=== PATIENT | male | born 1945 | race Caucasian/White ===

== ENCOUNTER 2018-03-14 11:52 | Inpatient (IN) | payer MEDICARE ==
[2018-03-14] VITALS (21 sets, daily range): BP systolic 98–161; BP diastolic 61–99
[~2018-03-14] VITALS: Ht 175.3 cm; Wt 92.9 kg
[~2018-03-14 11:52] MED LIST: MELO-108 PO
[2018-03-14] MEDS ORDERED: DILTIAZEM HCL 5 MG/ML 5 ML VIAL IVP ONE (12:45)
[2018-03-14] MEDS ORDERED: SODIUM CHLORIDE 0.9% 100 ML IV ONE (12:53)
[2018-03-14 12:54] LABS: BASOPHILS % (AUTO) 0.6 % (0.0-5.0); EOSINOPHILS % (AUTO) 0.8 % (0.0-8.0); HEMATOCRIT 45.1 % (42-54); LYMPHOCYTES % (AUTO) 12.4 % (21.0-51.0); MEAN CORPUSCULAR HEMOGLOBIN 30.4 pg (27.0-33.0); MEAN CORPUSCULAR HGB CONC 31.9 g/dL (32.0-36.0); MEAN CORPUSCULAR VOLUME 95.5 fL (79-99); MONOCYTES % (AUTO) 8.8 % (3.0-13.0); NEUTROPHILS % (AUTO) 77.4 % (40.0-77.0); NUCLEATED RED BLOOD CELLS 0.1 % (0.0-0.19); PLATELET COUNT (AUTO) 174 K/uL (130-400); RED BLOOD CELL COUNT(AUTO) 4.72 MIL/uL (4.50-6.20); RED CELL DISTRIBUTION WIDTH 14.5 % (11.0-15.5); WHITE BLOOD COUNT (AUTO) 11.1 K/uL (4.8-10.8)
[2018-03-14] MEDS ORDERED: DILTIAZEM HCL 5 MG/ML 10 ML VIAL IV ONE ×3 (12:54→15:10)
[2018-03-14 13:08] LABS: CARBON DIOXIDE 32 mmol/L (21-32); CHLORIDE 104 mmol/L (101-111); CREATININE 1.1 mg/dL (0.5-1.5); GLOMERULAR FILTR. RATE CALC 70 mL/min (>60); GLUCOSE,RANDOM 139 mg/dL (70-105); SODIUM SERUM 142 mmol/L (136-145); UREA NITROGEN, BLOOD 16 mg/dL (7-18)
[2018-03-14 13:09] LABS: INR 1.1 (0.85-1.15); PROTHROMBIN TIME 11.5 SEC (9.6-11.6)
[2018-03-14] MEDS ORDERED: SODIUM CHLORIDE 0.9% 500ML 500 ML IV ONE (13:15)
[2018-03-14 13:18] LABS: ALANINE AMINOTRANSFERASE 38 U/L (12-78); ALBUMIN 2.7 g/dL (3.5-5.0); ASPARTATE AMINOTRANSFERASE 22 U/L (10-37); BILIRUBIN,TOTAL 0.3 mg/dL (0.2-1.0); CREATINE KINASE, TOTAL 78 U/L (21-232); MYOGLOBIN 55 ng/mL (10-92); TOTAL PROTEIN, SERUM 6.7 g/dL (6.0-8.3); TROPONIN I < 0.04 ng/mL (0.00-0.06)
[2018-03-14] MEDS ORDERED: AZITHROMYCIN 500MG+NS 250ML 250 ML IV ONE (14:27)
[2018-03-14] MEDS ORDERED: FUROSEMIDE 10 MG/ML 4ML VIAL ONE (14:27)
[2018-03-14] MEDS ORDERED: CEFTRIAXONE SODIUM 1 GM ONE (14:27)
[2018-03-14] MEDS ORDERED: SODIUM CHLORIDE 0.9% 50 ML IV ONE (14:27)
[2018-03-14 14:42] LABS: ABG BASE EXCESS 1.4 mmol/L (-2.0-3.0); ABG HCO3 27.4 mmol/L (21.0-28.0); ABG OXYGEN SATURATION 91.7 % (95.0-99.0); ABG PCO2 49 mmHg (35-48)
[2018-03-14 16:01] LABS: APPEARANCE,URINE Clear (CLEAR); BILIRUBIN,URINE Negative (NEGATIVE); COLOR,URINE Yellow (YELLOW); GLUCOSE, URINE (UA) Negative (NEGATIVE); KETONES,URINE Negative (NEGATIVE); LEUKOCYTE ESTERASE ,URINE Negative (NEGATIVE); NITRATE,URINE Negative (NEGATIVE); OCCULT BLOOD,URINE Negative (NEGATIVE); PROTEIN,URINE Negative (NEGATIVE); UROBILINOGEN,URINE 0.2 mg/dL (0.2-1.0)
[2018-03-14] MEDS ORDERED: ONDANSETRON HCL 4 MG/2 ML VIAL IV PRN (16:15)
[2018-03-14] MEDS ORDERED: AZITHROMYCIN 500MG+NS 250ML 250 ML IV SCH (16:15)
[2018-03-14] MEDS ORDERED: ACETAMINOPHEN 325 MG TAB PO PRN (16:15)
[2018-03-14] MEDS ORDERED: DILTIAZEM HCL 125 MG/25 ML 125 MG in SODIUM CHLORIDE 0.9% 100 ML IV SCH (16:15)
[2018-03-14 17:02] LABS: HEMOGLOBIN A1C 6.1 % (4.0-6.0)
[2018-03-14 17:20] LABS: CREATINE KINASE, TOTAL 82 U/L (21-232); MYOGLOBIN 48 ng/mL (10-92); PHOSPHORUS 3.9 mg/dL (2.5-4.9); TROPONIN I < 0.04 ng/mL (0.00-0.06)
[2018-03-14] MEDS ORDERED: ASPIRIN 325 MG TABLET ONE (17:44)
[2018-03-14] MEDS ORDERED: SODIUM CHLORIDE 3% FOR INHALATION 4 ML/AMP VIAL.NEB IH ONE (18:13)
[2018-03-14] MEDS ORDERED: PNEUMOCOCCAL VACCINE POLYVALENT 0.5 ML/VIAL [PPV] IM ONE (19:00)
--- NOTE | 2018-03-14 19:25 | NUR ---
HAND OFF REPORT GIVEN TO TRISHA HENSON
--- NOTE | 2018-03-14 19:35 | NUR ---
ASSMT NOTE PT RECEIVED AAOX3. VS WNL; REMAINS AFIB 160'S, CARDIZEM INFUSING AT 15MG/HR. [facility] NOTIFIED OF CONSULT; NO NEW ORDERS GIVEN. PT DENIES PAIN OR DISTRESS.
[2018-03-14] MEDS: SODIUM CHLORIDE 0.9% 1000ML 1,000 ML IV SCH (19:41)
[2018-03-14] MEDS: ENOXAPARIN SODIUM 100 MG/1 ML SQ SCH (20:43)
[2018-03-14] MEDS: CEFTRIAXONE SODIUM 1 GM IV SCH (20:44)
[2018-03-14] MEDS: METOPROLOL TARTRATE 25 MG TAB PO SCH (20:45)
[2018-03-15] VITALS (42 sets, daily range): BP systolic 105–163; BP diastolic 42–108
[2018-03-15 00:59] LABS: CREATINE KINASE, TOTAL 57 U/L (21-232); MYOGLOBIN 65 ng/mL (10-92); TROPONIN I < 0.04 ng/mL (0.00-0.06)
[2018-03-15] MEDS: SODIUM CHLORIDE 0.9% 1000ML 1,000 ML IV SCH ×2 (04:49→08:08)
[2018-03-15] MEDS: METOPROLOL TARTRATE 25 MG TAB PO SCH ×3 (05:18→18:22)
[2018-03-15] MEDS: PANTOPRAZOLE SODIUM 40 MG TABLET.DR PO SCH (08:08)
[2018-03-15] MEDS: CEFTRIAXONE SODIUM 1 GM IV SCH (08:08)
[2018-03-15] MEDS: ENOXAPARIN SODIUM 100 MG/1 ML SQ SCH ×2 (08:09→20:33)
[2018-03-15 08:41] LABS: CREATINE KINASE, TOTAL 60 U/L (21-232); MYOGLOBIN 82 ng/mL (10-92); TROPONIN I < 0.04 ng/mL (0.00-0.06)
[2018-03-15] MEDS ORDERED: ENOXAPARIN SODIUM 40 MG/0.4 ML SYRINGE SQ SCH (09:00)
[2018-03-15] MEDS ORDERED: AMIODARONE HCL 900 MG in DEXTROSE 5%-WATER 500 ML IV SCH (11:15)
[2018-03-15] MEDS ORDERED: AMIODARONE HCL 150 MG in DEXTROSE 5%-WATER 100 ML IV SCH (12:08)
[2018-03-15] MEDS: IPRATROPIUM 0.5 MG/2.5 ML INH IH SCH ×3 (14:02→23:15)
[2018-03-15] MEDS: VERAPAMIL HCL 80 MG TABLET PO SCH ×2 (14:13→18:22)
[2018-03-15] MEDS ORDERED: MAGNESIUM 2GM PREMIX 50ML 50 ML IV SCH (15:45)
[2018-03-15] MEDS: CEFEPIME HCL 2 GM VIAL IVP SCH (16:42)
[2018-03-15] MEDS: NICOTINE 21 MG/ 24 HR PATCH TD SCH (18:18)
--- NOTE | 2018-03-15 20:00 | NUR ---
PM assessment. 1919 Bedside report received from NATIVIDAD Dean. plan of care discussed with patient and patient's family member. as per report patient heart rate in the 130-140's afib and o2 saturation 87-91% and MDs aware. Upon assessment at 1999 patient tachypneic in the 20's having some abdominal breathing. lung sounded congested and patient with current bilateral lower extremity pitting edem2+. Dr. Grant was notified, orders where received, read-back, entered into system, and carried out accordingly .will continue to monitor patient closely
[2018-03-15] MEDS: BUDESONIDE 0.5 MG/2 ML INH IH SCH (20:07)
[2018-03-15] MEDS: METHYLPREDNISOLONE SOD SUCC 40MG/ML 1ML IVP SCH (20:32)
[2018-03-15] MEDS: DOXYCYCLINE HYCLATE 100 MG TABLET PO SCH (20:32)
[2018-03-15] MEDS: FUROSEMIDE 10 MG/ML 4ML VIAL IV SCH (20:32)
--- NOTE | 2018-03-15 22:45 | NUR ---
CT scan. After Orders were carried out patient voided 1350, gave respiratory treatments, evening medication which included a steroid. Patient breathing better with heart rate within baseline limits. assessed patient for readiness for CT. CT was called and patient was able to be taken to CT of the chest with contrast with consent signed. CT scan was completed without any complications and settled back into room with vitals within baseline limits. will continue to monitor patient closely.
[2018-03-16] VITALS (23 sets, daily range): BP systolic 96–155; BP diastolic 56–109
[2018-03-16] MEDS: CEFEPIME HCL 2 GM VIAL IVP SCH ×4 (00:21→23:28)
[2018-03-16 03:17] LABS: BASOPHILS % (AUTO) 0.1 % (0.0-5.0); HEMATOCRIT 42.9 % (42-54); LYMPHOCYTES % (AUTO) 3.8 % (21.0-51.0); MEAN CORPUSCULAR HEMOGLOBIN 30.9 pg (27.0-33.0); MEAN CORPUSCULAR HGB CONC 32.9 g/dL (32.0-36.0); MEAN CORPUSCULAR VOLUME 93.9 fL (79-99); MONOCYTES % (AUTO) 1.5 % (3.0-13.0); NEUTROPHILS % (AUTO) 94.6 % (40.0-77.0); PLATELET COUNT (AUTO) 169 K/uL (130-400); RED BLOOD CELL COUNT(AUTO) 4.57 MIL/uL (4.50-6.20); RED CELL DISTRIBUTION WIDTH 14.4 % (11.0-15.5); WHITE BLOOD COUNT (AUTO) 9.3 K/uL (4.8-10.8)
[2018-03-16 03:37] LABS: ALBUMIN 2.8 g/dL (3.5-5.0); BILIRUBIN,TOTAL 0.6 mg/dL (0.2-1.0); CREATININE 1.3 mg/dL (0.5-1.5); MAGNESIUM 1.9 mg/dL (1.80-2.40); PHOSPHORUS 4.8 mg/dL (2.5-4.9); POTASSIUM 4.1 mmol/L (3.5-5.1); TOTAL PROTEIN, SERUM 6.7 g/dL (6.0-8.3)
[2018-03-16 03:55] LABS: ABG BASE EXCESS 2.3 mmol/L (-2.0-3.0); ABG PCO2 53 mmHg (35-48)
[2018-03-16] MEDS: METOPROLOL TARTRATE 25 MG TAB PO SCH ×3 (04:49→20:29)
[2018-03-16] MEDS: IPRATROPIUM 0.5 MG/2.5 ML INH IH SCH ×4 (06:34→23:48)
[2018-03-16] MEDS: BUDESONIDE 0.5 MG/2 ML INH IH SCH ×2 (06:34→18:48)
[2018-03-16] MEDS: VERAPAMIL HCL 80 MG TABLET PO SCH ×3 (08:27→20:30)
[2018-03-16] MEDS: DOXYCYCLINE HYCLATE 100 MG TABLET PO SCH ×2 (08:28→20:29)
[2018-03-16] MEDS: METHYLPREDNISOLONE SOD SUCC 40MG/ML 1ML IVP SCH ×2 (08:28→20:28)
[2018-03-16] MEDS: PANTOPRAZOLE SODIUM 40 MG TABLET.DR PO SCH (08:28)
[2018-03-16] MEDS: FUROSEMIDE 10 MG/ML 4ML VIAL IV SCH ×2 (08:29→20:29)
[2018-03-16] MEDS: ENOXAPARIN SODIUM 100 MG/1 ML SQ SCH ×2 (08:31→20:30)
[2018-03-16] MEDS ORDERED: METOPROLOL TARTRATE 1 MG/ML 5ML VIAL IV STA (12:37)
[2018-03-16] MEDS ORDERED: METOPROLOL TARTRATE 1 MG/ML 5ML VIAL IV ONE (12:41)
[2018-03-16] MEDS: NICOTINE 21 MG/ 24 HR PATCH TD SCH (13:24)
[2018-03-16] MEDS: METOPROLOL TARTRATE 1 MG/ML 5ML VIAL IV SCH ×2 (13:24→13:35)
[2018-03-17] VITALS (31 sets, daily range): BP systolic 93–159; BP diastolic 37–97
[2018-03-17 03:28] LABS: HEMATOCRIT 42.8 % (42-54); MEAN CORPUSCULAR HEMOGLOBIN 31.3 pg (27.0-33.0); PLATELET COUNT (AUTO) 180 K/uL (130-400); RED BLOOD CELL COUNT(AUTO) 4.51 MIL/uL (4.50-6.20); RED CELL DISTRIBUTION WIDTH 14.5 % (11.0-15.5); WHITE BLOOD COUNT (AUTO) 14.7 K/uL (4.8-10.8)
[2018-03-17 03:46] LABS: ALBUMIN 2.5 g/dL (3.5-5.0); BILIRUBIN,TOTAL 0.5 mg/dL (0.2-1.0); CREATININE 1.4 mg/dL (0.5-1.5); MAGNESIUM 2.1 mg/dL (1.80-2.40); PHOSPHORUS 4.5 mg/dL (2.5-4.9); POTASSIUM 3.9 mmol/L (3.5-5.1); TOTAL PROTEIN, SERUM 6.2 g/dL (6.0-8.3)
[2018-03-17] MEDS: METOPROLOL TARTRATE 25 MG TAB PO SCH (04:50)
[2018-03-17] MEDS: IPRATROPIUM 0.5 MG/2.5 ML INH IH SCH ×4 (06:42→23:30)
[2018-03-17] MEDS: BUDESONIDE 0.5 MG/2 ML INH IH SCH ×2 (06:42→18:43)
--- NOTE | 2018-03-17 07:15 | NUR ---
HR: 130- 150S - DR. FOX HERE; NO DISTRESS; UP IN CHAIR AT BSD.
[2018-03-17] MEDS: CEFEPIME HCL 2 GM VIAL IVP SCH ×2 (07:36→16:15)
[2018-03-17] MEDS: FUROSEMIDE 10 MG/ML 4ML VIAL IV SCH ×2 (08:44→20:45)
[2018-03-17] MEDS: METHYLPREDNISOLONE SOD SUCC 40MG/ML 1ML IVP SCH ×2 (08:44→20:46)
[2018-03-17] MEDS: DOXYCYCLINE HYCLATE 100 MG TABLET PO SCH ×2 (08:44→20:47)
[2018-03-17] MEDS: NICOTINE 21 MG/ 24 HR PATCH TD SCH (08:45)
[2018-03-17] MEDS: APIXABAN 5 MG TABLET PO SCH ×2 (08:45→20:47)
[2018-03-17] MEDS: VERAPAMIL HCL 80 MG TABLET PO SCH ×3 (08:46→20:46)
[2018-03-17] MEDS: PANTOPRAZOLE SODIUM 40 MG TABLET.DR PO SCH (08:46)
[2018-03-17] MEDS ORDERED: METOPROLOL TARTRATE 50 MG TAB PO SCH (10:28)
--- NOTE | 2018-03-17 11:24 | NUR ---
REPORT TO NATIVIDAD LOPEZ.
[2018-03-17] MEDS ORDERED: DILTIAZEM HCL 5 MG/ML 10 ML VIAL IV SCH (11:30)
[2018-03-17] MEDS ORDERED: DILTIAZEM HCL 5 MG/ML 5 ML VIAL IVP SCH (12:15)
[2018-03-17] MEDS: METOPROLOL TARTRATE 50 MG TAB PO SCH ×2 (13:22→20:46)
[2018-03-17] MEDS ORDERED: MAGNESIUM 2GM PREMIX 50ML 50 ML IV SCH (14:45)
--- NOTE | 2018-03-17 20:00 | NUR ---
ASSESSMENT AWAKE. DENIES PAIN. REMAINS ON CARDIZEM DRIP FOR RATE CONTROL. ASSESSMENT COMPLETED SEE FLOW SHEET. ENCOURAGED TO CALL FOR WANTS OR NEEDS. Addendum: 03/17/18 at 2113 by RONNIE WILLS RN RN Amended: Links added.
[2018-03-17] MEDS: DILTIAZEM 125MG+100 ML NS 125 ML IV SCH (22:25)
[2018-03-18] VITALS (18 sets, daily range): BP systolic 96–155; BP diastolic 40–95
[2018-03-18] MEDS: CEFEPIME HCL 2 GM VIAL IVP SCH ×4 (00:01→23:07)
[2018-03-18 03:40] LABS: HEMATOCRIT 43.8 % (42-54); LYMPHOCYTES % (AUTO) 2.1 % (21.0-51.0); MEAN CORPUSCULAR HEMOGLOBIN 30.6 pg (27.0-33.0); MEAN CORPUSCULAR HGB CONC 32.4 g/dL (32.0-36.0); MEAN CORPUSCULAR VOLUME 94.3 fL (79-99); MONOCYTES % (AUTO) 2.9 % (3.0-13.0); NUCLEATED RED BLOOD CELLS 0.1 % (0.0-0.19); PLATELET COUNT (AUTO) 163 K/uL (130-400); RED BLOOD CELL COUNT(AUTO) 4.64 MIL/uL (4.50-6.20); RED CELL DISTRIBUTION WIDTH 14.5 % (11.0-15.5); WHITE BLOOD COUNT (AUTO) 14.8 K/uL (4.8-10.8)
[2018-03-18 03:51] LABS: CREATININE 1.5 mg/dL (0.5-1.5); POTASSIUM 3.6 mmol/L (3.5-5.1)
[2018-03-18 04:00] LABS: B-TYPE NATRIURETIC PEPTIDE 659 pg/mL (0-100)
[2018-03-18] MEDS: METOPROLOL TARTRATE 50 MG TAB PO SCH ×3 (05:30→21:19)
[2018-03-18] MEDS: DILTIAZEM 125MG+100 ML NS 125 ML IV SCH ×2 (06:31→17:05)
[2018-03-18] MEDS: BUDESONIDE 0.5 MG/2 ML INH IH SCH ×2 (06:33→19:23)
[2018-03-18] MEDS: IPRATROPIUM 0.5 MG/2.5 ML INH IH SCH ×2 (06:34→11:37)
[2018-03-18] MEDS: FUROSEMIDE 10 MG/ML 4ML VIAL IV SCH (07:53)
[2018-03-18] MEDS: VERAPAMIL HCL 80 MG TABLET PO SCH (07:54)
[2018-03-18] MEDS: METHYLPREDNISOLONE SOD SUCC 40MG/ML 1ML IVP SCH (07:54)
[2018-03-18] MEDS: APIXABAN 5 MG TABLET PO SCH ×2 (07:54→21:19)
[2018-03-18] MEDS: DOXYCYCLINE HYCLATE 100 MG TABLET PO SCH ×2 (07:54→21:18)
[2018-03-18] MEDS: PANTOPRAZOLE SODIUM 40 MG TABLET.DR PO SCH (07:54)
[2018-03-18] MEDS: NICOTINE 21 MG/ 24 HR PATCH TD SCH (08:37)
--- NOTE | 2018-03-18 10:16 | NUR ---
DC PLAN VISITED WITH PATIENT. PATIENT LIVES WITH SPOUSE. INDEPENDENT ABLE TO PERFORM ADL'S. PATIENT HAS NO SERVICES OR DME'S. FEELS SAFE TO RETURN HOME. CECELIA ACOSTA. Addendum: 03/18/18 at 1019 by ZAKI PEREZ RN CM Amended: Links added.
[2018-03-18] MEDS: DILTIAZEM HCL 60 MG TABLET PO SCH ×2 (13:45→23:07)
[2018-03-18] MEDS ORDERED: DIGOXIN 250 MCG/ML 2ML AMP IV ONE (13:45)
[2018-03-18] MEDS ORDERED: IPRATROPIUM 0.5 MG/2.5 ML INH IH ONE (19:34)
[2018-03-19] MEDS: DILTIAZEM 125MG+100 ML NS 125 ML IV SCH (02:55)
[2018-03-19 03:51] VITALS: BP 100/54
[2018-03-19 04:06] LABS: BASOPHILS % (AUTO) 0.2 % (0.0-5.0); EOSINOPHILS % (AUTO) 0.1 % (0.0-8.0); HEMATOCRIT 44.1 % (42-54); LYMPHOCYTES % (AUTO) 2.3 % (21.0-51.0); MEAN CORPUSCULAR HEMOGLOBIN 31.6 pg (27.0-33.0); MEAN CORPUSCULAR HGB CONC 33.2 g/dL (32.0-36.0); MEAN CORPUSCULAR VOLUME 95.1 fL (79-99); MONOCYTES % (AUTO) 8.1 % (3.0-13.0); NEUTROPHILS % (AUTO) 89.3 % (40.0-77.0); NUCLEATED RED BLOOD CELLS 0.1 % (0.0-0.19); PLATELET COUNT (AUTO) 163 K/uL (130-400); RED BLOOD CELL COUNT(AUTO) 4.63 MIL/uL (4.50-6.20); RED CELL DISTRIBUTION WIDTH 14.6 % (11.0-15.5); WHITE BLOOD COUNT (AUTO) 19.1 K/uL (4.8-10.8)
[2018-03-19 04:21] LABS: ALBUMIN 2.7 g/dL (3.5-5.0); BILIRUBIN,TOTAL 0.6 mg/dL (0.2-1.0); CREATININE 1.4 mg/dL (0.5-1.5); MAGNESIUM 2.3 mg/dL (1.80-2.40); POTASSIUM 4.6 mmol/L (3.5-5.1); TOTAL PROTEIN, SERUM 6.7 g/dL (6.0-8.3)
[2018-03-19 04:36] LABS: INR 1.17 (0.85-1.15); PARTIAL THROMBOPLASTIN TIME 25.9 SEC (26.3-35.5); PROTHROMBIN TIME 11.9 SEC (9.6-11.6)
[2018-03-19] MEDS: METOPROLOL TARTRATE 50 MG TAB PO SCH ×3 (05:13→21:42)
[2018-03-19] MEDS: DILTIAZEM HCL 60 MG TABLET PO SCH ×3 (06:27→21:44)
[2018-03-19 07:38] VITALS: BP 141/85
[2018-03-19] MEDS: APIXABAN 5 MG TABLET PO SCH ×2 (07:51→21:42)
[2018-03-19] MEDS: PANTOPRAZOLE SODIUM 40 MG TABLET.DR PO SCH (07:51)
[2018-03-19] MEDS: PREDNISONE 20 MG TABLET PO SCH (07:51)
[2018-03-19] MEDS: DOXYCYCLINE HYCLATE 100 MG TABLET PO SCH ×2 (07:51→21:42)
--- NOTE | 2018-03-19 08:00 | NUR ---
ASSESSMENT PT IS AAOX3. DENIES CP DENIES SOB DENIES NV RESTING IN BED. NO COMPLAINTS. DR FOX ROUNDED, ORDERS RECEIVED.
[2018-03-19] MEDS: NICOTINE 21 MG/ 24 HR PATCH TD SCH (08:18)
[2018-03-19] MEDS: CEFEPIME HCL 2 GM VIAL IVP SCH ×2 (08:18→15:16)
--- NOTE | 2018-03-19 09:20 | NUR ---
DR Iain ZHANG ROUNDED SAW PATIENT ORDERS RECEIVED
[2018-03-19 11:06] VITALS: BP 164/96
[2018-03-19 16:20] VITALS: BP 135/51
--- NOTE | 2018-03-19 18:00 | NUR ---
SHIFT NOTE PT IS AAOX4 NO COMPLAINTS THROUGHOUT THE DAY.
[2018-03-19] MEDS: BUDESONIDE 0.5 MG/2 ML INH IH SCH (19:04)
[2018-03-19] MEDS: IPRATROPIUM 0.5 MG/2.5 ML INH IH SCH (19:04)
[2018-03-19 19:51] VITALS: BP 118/75
[2018-03-19 23:57] VITALS: BP 156/67
[2018-03-20] VITALS (11 sets, daily range): BP systolic 116–144; BP diastolic 53–98
[2018-03-20] MEDS: CEFEPIME HCL 2 GM VIAL IVP SCH ×3 (00:04→13:32)
[2018-03-20 03:38] LABS: BASOPHILS % (AUTO) 0.1 % (0.0-5.0); EOSINOPHILS % (AUTO) 0.4 % (0.0-8.0); HEMATOCRIT 44.9 % (42-54); LYMPHOCYTES % (AUTO) 6.8 % (21.0-51.0); MEAN CORPUSCULAR HEMOGLOBIN 30.6 pg (27.0-33.0); MEAN CORPUSCULAR HGB CONC 32.4 g/dL (32.0-36.0); MEAN CORPUSCULAR VOLUME 94.3 fL (79-99); MONOCYTES % (AUTO) 9.8 % (3.0-13.0); NEUTROPHILS % (AUTO) 82.9 % (40.0-77.0); NUCLEATED RED BLOOD CELLS 0.1 % (0.0-0.19); PLATELET COUNT (AUTO) 141 K/uL (130-400); RED BLOOD CELL COUNT(AUTO) 4.76 MIL/uL (4.50-6.20); RED CELL DISTRIBUTION WIDTH 14.3 % (11.0-15.5); WHITE BLOOD COUNT (AUTO) 13.2 K/uL (4.8-10.8)
[2018-03-20 03:50] LABS: INR 1.16 (0.85-1.15); PARTIAL THROMBOPLASTIN TIME 27.5 SEC (26.3-35.5); PROTHROMBIN TIME 12.1 SEC (9.6-11.6)
[2018-03-20 03:59] LABS: CREATININE 1.1 mg/dL (0.5-1.5); MAGNESIUM 2.3 mg/dL (1.80-2.40); POTASSIUM 4.7 mmol/L (3.5-5.1)
[2018-03-20] MEDS: DILTIAZEM HCL 60 MG TABLET PO SCH ×3 (05:07→22:20)
[2018-03-20] MEDS: METOPROLOL TARTRATE 50 MG TAB PO SCH ×2 (05:07→20:11)
[2018-03-20] MEDS: BUDESONIDE 0.5 MG/2 ML INH IH SCH ×2 (07:23→18:57)
[2018-03-20] MEDS: IPRATROPIUM 0.5 MG/2.5 ML INH IH SCH ×2 (07:23→18:57)
[2018-03-20] MEDS ORDERED: MIDAZOLAM HCL 1 MG/ML 2ML VIAL IVP SCH (08:00)
[2018-03-20] MEDS ORDERED: LIDOCAINE HCL 2% VISCOUS 15 ML UDCUP PO SCH (08:00)
--- NOTE | 2018-03-20 08:00 | NUR ---
ASSESSMENT PT IS AAOX3 DENIES CP DENIES SOB DENIES NV. NPO STATUS FOR CARDIOVERSION.
[2018-03-20] MEDS: NICOTINE 21 MG/ 24 HR PATCH TD SCH (09:00)
[2018-03-20] MEDS: APIXABAN 5 MG TABLET PO SCH ×2 (09:00→20:11)
[2018-03-20] MEDS: PANTOPRAZOLE SODIUM 40 MG TABLET.DR PO SCH (09:00)
[2018-03-20] MEDS: PREDNISONE 20 MG TABLET PO SCH (09:00)
[2018-03-20] MEDS: DOXYCYCLINE HYCLATE 100 MG TABLET PO SCH ×2 (09:00→20:11)
--- NOTE | 2018-03-20 10:00 | NUR ---
DEMARIO CARDIOVERSION AT BEDSIDE MARISOL MAGANA, DR Iain ZHANG, VICTOR MANUEL RN, AND PETER ADAMSON AT BEDSIDE. SEDATION ACHIEVED. VS WNLS. SHOCKED X2, CONVERTED TO SR X2 TIMES, BUT WENT INTO AFIB AFTER. ORDERS RECEIVED FOR AMIODARONE. CONTINUING TO MONITOR PATIENT.
[2018-03-20] MEDS ORDERED: AMIODARONE HCL 150 MG in DEXTROSE 5%-WATER 100 ML IV STA (10:13)
[2018-03-20] MEDS ORDERED: AMIODARONE HCL 150 MG in DEXTROSE 5%-WATER 100 ML IV SCH (10:15)
--- NOTE | 2018-03-20 10:15 | NUR ---
AMIODARONE PER PROTOCOL STARTED PER DR Iain ZHANG ORDERS
[2018-03-20] MEDS ORDERED: AMIODARONE HCL 900 MG in DEXTROSE 5%-WATER 500 ML IV SCH (10:37)
--- NOTE | 2018-03-20 11:00 | NUR ---
STATUS PT IS RESTING IN BED, AROUSABLE TO NAME, STILL ASLEEP THOUGH. BREATHING PATTERN IS EVEN AND UNLABORED. HOB UP AT 35DEGREES.
--- NOTE | 2018-03-20 12:00 | NUR ---
STATUS PT IS FULLY AAOX4, AMBULATORY, ABLE TO SWALLOW FOOD/WATER WITHOUT CHOKING OR GAGGING. SITTING UPRIGHT AT BEDSIDE, EATING LUNCH, SPOUSE AT BEDSIDE.
[2018-03-20] MEDS: FENTANYL CITRATE PF 50 MCG/1 ML 2ML VIAL IVP SCH (12:08)
[2018-03-20] MEDS: LACTULOSE 20 GM/30 ML UDCUP PO SCH (14:49)
--- NOTE | 2018-03-20 15:15 | NUR ---
DR SEPULVEDA ROUNDED SAW PATIENT
--- NOTE | 2018-03-20 15:30 | NUR ---
DR Iain ZHANG ROUNDED STATES THAT PATIENT IS CLEARED TO HAVE BRONCH OR WHICHEVER BIOPSY STUDY NEEDED BY PATIENT TO BE PERFORMED BY PULMONARY GROUP. NURSING COMMUNICATION ORDER PLACED IN CPOE.
--- NOTE | 2018-03-20 17:25 | NUR ---
STATUS NO COMPLAINTS AT THIS TIME DENIES PAIN, SITTING UPRIGHT IN CHAIR. AMIODARONE GTT CONTINUES PER PROTOCOL. CALL LIGHT WITHIN REACH.
[2018-03-20] MEDS ORDERED: METOPROLOL TARTRATE 50 MG TAB PO SCH (21:00)
[2018-03-21] MEDS: CEFEPIME HCL 2 GM VIAL IVP SCH ×3 (00:10→20:24)
[2018-03-21 04:16] VITALS: BP 163/77
[2018-03-21] MEDS: DILTIAZEM HCL 60 MG TABLET PO SCH ×3 (05:23→20:23)
[2018-03-21] MEDS: IPRATROPIUM 0.5 MG/2.5 ML INH IH SCH ×2 (06:10→18:16)
[2018-03-21] MEDS: BUDESONIDE 0.5 MG/2 ML INH IH SCH ×2 (06:10→18:16)
[2018-03-21 07:44] VITALS: BP 146/80
[2018-03-21] MEDS: FENTANYL CITRATE PF 50 MCG/1 ML 2ML VIAL IVP SCH (07:50)
[2018-03-21] MEDS ORDERED: DIGOXIN 250 MCG/ML 2ML AMP IV SCH ×2 (09:23→09:38)
[2018-03-21] MEDS ORDERED: METO100T14 PO (09:36)
[2018-03-21] MEDS ORDERED: FURO40TA5 PO (09:36)
[2018-03-21] MEDS ORDERED: POTA10CA44 PO (09:36)
[2018-03-21] MEDS ORDERED: APIX5TAB PO (09:36)
[2018-03-21] MEDS ORDERED: DILT60TA3 PO (09:36)
[2018-03-21] MEDS ORDERED: AMIO200T5 PO (09:36)
[2018-03-21] MEDS: METOPROLOL TARTRATE 50 MG TAB PO SCH ×3 (09:49→20:23)
[2018-03-21] MEDS: APIXABAN 5 MG TABLET PO SCH ×2 (09:49→20:22)
[2018-03-21] MEDS: PREDNISONE 20 MG TABLET PO SCH (09:49)
[2018-03-21] MEDS: DOXYCYCLINE HYCLATE 100 MG TABLET PO SCH ×2 (09:49→20:23)
[2018-03-21] MEDS: PANTOPRAZOLE SODIUM 40 MG TABLET.DR PO SCH (09:49)
[2018-03-21] MEDS: NICOTINE 21 MG/ 24 HR PATCH TD SCH (09:50)
--- NOTE | 2018-03-21 11:23 | NUR ---
RD Screen - LOSx7 Patient with CAP, AFIB, RVR. Patient BMI 30.5. Patient tolerating current Heart Healthy diet with no report of GI distress and PO intake at 75-100%. Patient LBM 03/19/18; Lactulose in place. Patient monitored labs: BUN 41, Ca 8.2, Alb 2.7. Patient with no nutritional concerns at this time. RD to continue to monitor nutritional labs and PO intake. Please notify RD as nutritional concerns arise. Thank you. Addendum: 03/21/18 at [address] RD Amended: Links added.
[2018-03-21] MEDS: LACTULOSE 20 GM/30 ML UDCUP PO SCH (11:45)
[2018-03-21 11:46] VITALS: BP 158/78
[2018-03-21] MEDS: DIGOXIN 250 MCG/ML 2ML AMP IV SCH (13:45)
[2018-03-21 16:00] VITALS: BP 118/93
[2018-03-21] MEDS ORDERED: PRED20TA3 PO (17:21)
[2018-03-21] MEDS ORDERED: DOXY100C2 PO (17:21)
[2018-03-21] MEDS ORDERED: CEPH-578 PO (17:21)
[2018-03-21 19:56] VITALS: BP 157/100
[2018-03-21 23:29] VITALS: BP 132/98
[2018-03-22 03:27] VITALS: BP 127/91
[2018-03-22 03:36] LABS: BASOPHILS % (AUTO) 0.2 % (0.0-5.0); EOSINOPHILS % (AUTO) 0.5 % (0.0-8.0); HEMATOCRIT 47.1 % (42-54); LYMPHOCYTES % (AUTO) 8.4 % (21.0-51.0); MEAN CORPUSCULAR HEMOGLOBIN 30.4 pg (27.0-33.0); MEAN CORPUSCULAR HGB CONC 32.1 g/dL (32.0-36.0); MEAN CORPUSCULAR VOLUME 94.9 fL (79-99); MONOCYTES % (AUTO) 7.9 % (3.0-13.0); NUCLEATED RED BLOOD CELLS 0.1 % (0.0-0.19); PLATELET COUNT (AUTO) 154 K/uL (130-400); RED BLOOD CELL COUNT(AUTO) 4.96 MIL/uL (4.50-6.20); RED CELL DISTRIBUTION WIDTH 14.5 % (11.0-15.5); WHITE BLOOD COUNT (AUTO) 14.2 K/uL (4.8-10.8)
[2018-03-22 03:40] LABS: POTASSIUM 4.6 mmol/L (3.5-5.1)
[2018-03-22] MEDS: DILTIAZEM HCL 60 MG TABLET PO SCH ×3 (05:26→20:46)
[2018-03-22] MEDS: BUDESONIDE 0.5 MG/2 ML INH IH SCH ×2 (06:23→18:41)
[2018-03-22] MEDS: IPRATROPIUM 0.5 MG/2.5 ML INH IH SCH ×2 (06:23→18:41)
[2018-03-22 07:00] VITALS: BP 101/54
[2018-03-22] MEDS: FENTANYL CITRATE PF 50 MCG/1 ML 2ML VIAL IVP SCH (07:52)
[2018-03-22] MEDS: CEFEPIME HCL 2 GM VIAL IVP SCH ×3 (08:55→22:57)
[2018-03-22] MEDS: METOPROLOL TARTRATE 50 MG TAB PO SCH ×3 (08:55→20:44)
[2018-03-22] MEDS: APIXABAN 5 MG TABLET PO SCH ×2 (08:56→20:44)
[2018-03-22] MEDS: PREDNISONE 20 MG TABLET PO SCH (08:56)
[2018-03-22] MEDS: DOXYCYCLINE HYCLATE 100 MG TABLET PO SCH ×2 (08:56→20:44)
[2018-03-22] MEDS: PANTOPRAZOLE SODIUM 40 MG TABLET.DR PO SCH (08:56)
[2018-03-22] MEDS: NICOTINE 21 MG/ 24 HR PATCH TD SCH (08:56)
[2018-03-22] MEDS ORDERED: LORAZEPAM 0.5 MG TABLET PO SCH (10:45)
[2018-03-22 11:00] VITALS: BP 111/82
[2018-03-22] MEDS: LACTULOSE 20 GM/30 ML UDCUP PO SCH (11:45)
[2018-03-22] MEDS: LACTULOSE 20 GM/30 ML UDCUP PO PRN (11:50)
--- NOTE | 2018-03-22 12:37 | NUR ---
JONATAN GALARZA IS MAKING HER ROUNDS. INFORMED HER THAT PATIENT HAD US NECK DONE RECENTLY THAT SHOWED THYROID NODULE. PATIENT PERSISTS WITH AFIB RVR 140'S.
[2018-03-22] MEDS ORDERED: ALPRAZOLAM 0.25 MG TABLET PO PRN (13:15)
[2018-03-22] MEDS: DIGOXIN 250 MCG/ML 2ML AMP IV SCH (13:45)
[2018-03-22] MEDS ORDERED: AMIODARONE HCL 200 MG TABLET PO SCH ×2 (14:30→16:00)
[2018-03-22 16:00] VITALS: BP 111/85
[2018-03-22] MEDS ORDERED: AMIODARONE HCL 150 MG in DEXTROSE 5%-WATER 100 ML IV SCH (16:00)
--- NOTE | 2018-03-22 18:48 | NUR ---
PATIENT HEART RATE CONTINUES ON THE 120-130 RANGE. NEW MANAGEMENT INCLUDES AMIODARONE PO BID. AMIODARONE BOLUS ADMINISTERED ORDERED BY DR. FOX.
--- NOTE | 2018-03-22 19:00 | NUR ---
PM ASSESSMENT report received from NATIVIDAD Ash. pt presents AAO x3, denies pain at this time, and resting comfortably in bed. pt verbalizes understanding plan of care and verbalizes concern for poor sleep. xanax and ambien to be administered. assessment as charted. sustained afib 110-140's. pt on eliquis for VTE prophylaxis. non skid socks on, side rails up, call light within reach and pt demonstrates how to use. will continue to monitor.
[2018-03-22 19:53] VITALS: BP 140/93
[2018-03-22] MEDS: AMIODARONE HCL 200 MG TABLET PO SCH (20:43)
[2018-03-22] MEDS: ALPRAZOLAM 0.25 MG TABLET PO PRN (20:44)
[2018-03-22] MEDS: ZOLPIDEM TARTRATE 5 MG TAB PO PRN (22:57)
[2018-03-22 23:54] VITALS: BP 122/90
[2018-03-23 04:09] VITALS: BP 120/102
[2018-03-23 04:34] LABS: BASOPHILS % (AUTO) 0.4 % (0.0-5.0); EOSINOPHILS % (AUTO) 0.7 % (0.0-8.0); HEMATOCRIT 44.9 % (42-54); LYMPHOCYTES % (AUTO) 10.9 % (21.0-51.0); MEAN CORPUSCULAR HEMOGLOBIN 31.6 pg (27.0-33.0); MEAN CORPUSCULAR HGB CONC 33.2 g/dL (32.0-36.0); MEAN CORPUSCULAR VOLUME 95.2 fL (79-99); MONOCYTES % (AUTO) 8.3 % (3.0-13.0); NEUTROPHILS % (AUTO) 79.7 % (40.0-77.0); NUCLEATED RED BLOOD CELLS 0.1 % (0.0-0.19); PLATELET COUNT (AUTO) 169 K/uL (130-400); RED BLOOD CELL COUNT(AUTO) 4.71 MIL/uL (4.50-6.20); RED CELL DISTRIBUTION WIDTH 14.5 % (11.0-15.5); WHITE BLOOD COUNT (AUTO) 12.7 K/uL (4.8-10.8)
[2018-03-23 05:23] LABS: POTASSIUM 4.5 mmol/L (3.5-5.1); THYROID STIMULATING HORMONE 5.17 uIU/mL (0.36-3.74)
[2018-03-23 05:56] LABS: T4 (THYROXINE) 5.1 mcg/dL (4.7-13.3)
[2018-03-23] MEDS: IPRATROPIUM 0.5 MG/2.5 ML INH IH SCH ×2 (06:24→18:22)
[2018-03-23] MEDS: BUDESONIDE 0.5 MG/2 ML INH IH SCH ×2 (06:24→18:23)
[2018-03-23] MEDS: DILTIAZEM HCL 60 MG TABLET PO SCH ×4 (06:25→23:00)
[2018-03-23] MEDS: CEFEPIME HCL 2 GM VIAL IVP SCH ×4 (06:26→23:00)
[2018-03-23 07:00] VITALS: BP 137/76
[2018-03-23] MEDS: FENTANYL CITRATE PF 50 MCG/1 ML 2ML VIAL IVP SCH (07:47)
[2018-03-23] MEDS: DOXYCYCLINE HYCLATE 100 MG TABLET PO SCH ×2 (08:57→19:55)
[2018-03-23] MEDS: PREDNISONE 20 MG TABLET PO SCH (08:57)
[2018-03-23] MEDS: NICOTINE 21 MG/ 24 HR PATCH TD SCH (08:57)
[2018-03-23] MEDS: AMIODARONE HCL 200 MG TABLET PO SCH ×2 (08:57→19:55)
[2018-03-23] MEDS: PANTOPRAZOLE SODIUM 40 MG TABLET.DR PO SCH (08:57)
[2018-03-23] MEDS: METOPROLOL TARTRATE 50 MG TAB PO SCH ×3 (08:57→19:55)
[2018-03-23] MEDS: APIXABAN 5 MG TABLET PO SCH ×2 (08:57→19:55)
[2018-03-23] MEDS: LACTULOSE 20 GM/30 ML UDCUP PO PRN (09:09)
--- NOTE | 2018-03-23 09:30 | NUR ---
JONATAN GALARZA IS MAKING HER ROUNDS. INFORMED HER OF THE CHANGES IN MEDICATIONS ORDERED BY DR. FOX. CARDIOLOGY HAS NOT SIGNED OFF YET. PATIENT'S HEART RATE ALTHOUGH SLIGHTLY BETTER IS STILL ELEVATED 120-130'S. PER DR. FOX, WHEN DISCHARGED, PATIENT WILL BE GETTING AMIODARONE 400MG PO BID FOR 1 WEEK THEN DAILY.
[2018-03-23 11:00] VITALS: BP 139/55
[2018-03-23] MEDS: LACTULOSE 20 GM/30 ML UDCUP PO SCH (11:04)
[2018-03-23] MEDS: ALPRAZOLAM 0.25 MG TABLET PO PRN ×2 (13:18→19:55)
[2018-03-23] MEDS: DIGOXIN 250 MCG/ML 2ML AMP IV SCH (13:19)
[2018-03-23 16:00] VITALS: BP 136/70
--- NOTE | 2018-03-23 18:45 | NUR ---
tele update: Afib 119
--- NOTE | 2018-03-23 19:20 | NUR ---
PM ASSESSMENT bedside handoff received from NATIVIDAD Ash. pt presents AAO x3, denies pain at this time, and resting comfortably in bed. pt verbalizes understanding plan of care. discussion about xanax and ambien to be administered tonight. assessment as charted. sustained afib 110-125's. pt denies cp or SOB. pt on eliquis for VTE prophylaxis. non skid socks on, side rails up, call light within reach and pt demonstrates how to use. will continue to monitor.
[2018-03-23 19:47] VITALS: BP 139/77
[2018-03-23] MEDS: ZOLPIDEM TARTRATE 5 MG TAB PO PRN ×2 (22:48→23:00)
[2018-03-24 00:28] VITALS: BP 121/80
[2018-03-24 04:07] VITALS: BP 136/86
[2018-03-24] MEDS: IPRATROPIUM 0.5 MG/2.5 ML INH IH SCH (06:42)
[2018-03-24] MEDS: BUDESONIDE 0.5 MG/2 ML INH IH SCH (06:52)
[2018-03-24] MEDS: FENTANYL CITRATE PF 50 MCG/1 ML 2ML VIAL IVP SCH (07:28)
[2018-03-24] MEDS: DILTIAZEM HCL 60 MG TABLET PO SCH ×2 (07:44→13:46)
[2018-03-24] MEDS: CEFEPIME HCL 2 GM VIAL IVP SCH ×2 (07:44→15:49)
[2018-03-24 07:52] VITALS: BP 144/82
[2018-03-24] MEDS: PANTOPRAZOLE SODIUM 40 MG TABLET.DR PO SCH (09:11)
[2018-03-24] MEDS: AMIODARONE HCL 200 MG TABLET PO SCH (09:12)
[2018-03-24] MEDS: DOXYCYCLINE HYCLATE 100 MG TABLET PO SCH (09:12)
[2018-03-24] MEDS: NICOTINE 21 MG/ 24 HR PATCH TD SCH (09:12)
[2018-03-24] MEDS: METOPROLOL TARTRATE 50 MG TAB PO SCH ×2 (09:12→13:46)
[2018-03-24] MEDS: APIXABAN 5 MG TABLET PO SCH (09:12)
[2018-03-24 11:16] VITALS: BP 127/75
[2018-03-24] MEDS: LACTULOSE 20 GM/30 ML UDCUP PO SCH (12:24)
[2018-03-24] MEDS: LACTULOSE 20 GM/30 ML UDCUP PO PRN (12:29)
[2018-03-24] MEDS: DIGOXIN 250 MCG/ML 2ML AMP IV SCH (13:47)
[2018-03-24 16:06] VITALS: BP 109/84
[2018-03-24] MEDS ORDERED: ALPR0.25 PO (16:45)
[2018-03-24] MEDS ORDERED: DOCU-116 PO (16:45)
[2018-03-24] MEDS ORDERED: NICO-649 TD (16:46)
[2018-03-24] MEDS: ALPRAZOLAM 0.25 MG TABLET PO PRN (17:07)
== END 2018-03-24 18:25 | disposition home or self-care (01) | DRG 871 ==
LOC: EDH 11:52 → EDHIP 16:13 → 2BH 17:33 → 2AH 03-18 16:28
PROVIDERS: ADMIT Internal Medicine; ATTEND Internal Medicine
PROC: 5A2204Z Restoration of Cardiac Rhythm, Single (ICD-10-PCS; principal; 2018-03-20)
PROC: B246ZZ4 Ultrasonography of Right and Left Heart, Transesophageal (ICD-10-PCS; 2018-03-20)
DX: A41.9 Sepsis, unspecified organism (principal); J18.1 Lobar pneumonia, unspecified organism; J96.21 Acute and chronic respiratory failure with hypoxia; J96.22 Acute and chronic respiratory failure with hypercapnia; I50.43 Acute on chronic combined systolic (congestive) and diastolic (congestive) heart failure; J44.1 Chronic obstructive pulmonary disease with (acute) exacerbation; J44.0 Chronic obstructive pulmonary disease with (acute) lower respiratory infection; I48.1 Persistent atrial fibrillation; F17.210 Nicotine dependence, cigarettes, uncomplicated; G47.00 Insomnia, unspecified; K59.00 Constipation, unspecified; R68.3 Clubbing of fingers; I07.1 Rheumatic tricuspid insufficiency; I34.0 Nonrheumatic mitral (valve) insufficiency; Z79.01 Long term (current) use of anticoagulants; Z80.9 Family history of malignant neoplasm, unspecified; Z82.3 Family history of stroke
CPT/HCPCS: 36415; 36600; 71045; 71260; 80048; 80053; 80339; 81003; 82550; 82803; 83036; 83605; 83735; 83874; 83880; 84100; 84436; 84443; 84484; 85025; 85027; 85610; 85730; 87040; 87071; 87088; 87205; 87486; 87581; 87633; 87798; 87804; 90732; 92960; 93005; 93306; 93313; 94640; 94664; 99291; A4218; G0378; J0282; J0456; J0692; J0696; J1160; J1650; J1940; J2250; J2920; J3010; J3475; J3490; J7030; J7040; J7060

== ENCOUNTER 2018-04-27 12:45 | Inpatient (IN) | payer MEDICARE ==
[~2018-04-27] VITALS: Ht 175.3 cm; Wt 90.7 kg
[~2018-04-27 12:45] MED LIST changes: +ALPR0.25 PO; +AMIO200T5 PO; +APIX5TAB PO; +CEPH-578 PO; +DILT60TA3 PO; +DOCU-116 PO; +DOXY100C2 PO; +FURO40TA5 PO; -MELO-108 PO; +METO100T14 PO; +NICO-649 TD; +POTA10CA44 PO
[2018-04-27 13:25] LABS: BASOPHILS % (AUTO) 0.9 % (0.0-5.0); EOSINOPHILS % (AUTO) 1.7 % (0.0-8.0); HEMATOCRIT 46.7 % (42-54); LYMPHOCYTES % (AUTO) 11.2 % (21.0-51.0); MEAN CORPUSCULAR HGB CONC 33.2 g/dL (32.0-36.0); MEAN CORPUSCULAR VOLUME 93.4 fL (79-99); MONOCYTES % (AUTO) 14.3 % (3.0-13.0); NEUTROPHILS % (AUTO) 71.9 % (40.0-77.0); PLATELET COUNT (AUTO) 168 K/uL (130-400); RED BLOOD CELL COUNT(AUTO) 5.01 MIL/uL (4.50-6.20); RED CELL DISTRIBUTION WIDTH 14.7 % (11.0-15.5); WHITE BLOOD COUNT (AUTO) 9.1 K/uL (4.8-10.8)
[2018-04-27 13:31] LABS: CREATININE 1.2 mg/dL (0.5-1.5); POTASSIUM 4.7 mmol/L (3.5-5.1)
[2018-04-27 13:32] LABS: INR 1.02 (0.85-1.15); PARTIAL THROMBOPLASTIN TIME 31.5 SEC (26.3-35.5); PROTHROMBIN TIME 10.7 SEC (9.6-11.6)
[2018-04-27 13:38] LABS: ALBUMIN 3.1 g/dL (3.5-5.0); BILIRUBIN,TOTAL 0.5 mg/dL (0.2-1.0); TOTAL PROTEIN, SERUM 8.1 g/dL (6.0-8.3)
[2018-04-27] MEDS ORDERED: CEFTRIAXONE SODIUM 1 GM ONE (16:26)
[2018-04-27] MEDS ORDERED: SODIUM CHLORIDE 0.9% 10 ML VIAL IVP PRN (18:45)
[2018-04-27] MEDS ORDERED: ALPRAZOLAM 0.25 MG TABLET PO PRN (20:00)
[2018-04-27] MEDS ORDERED: ACETAMINOPHEN 325 MG TAB PO PRN (20:00)
[2018-04-27] MEDS ORDERED: ONDANSETRON HCL 4 MG/2 ML VIAL IV PRN (20:00)
[2018-04-27 20:45] VITALS: BP 150/92
[2018-04-27] MEDS: DILTIAZEM HCL 60 MG TABLET PO SCH (21:00)
[2018-04-27] MEDS: GABAPENTIN 100 MG CAPSULE PO SCH (21:00)
[2018-04-27] MEDS: FAMOTIDINE 20MG TAB 20 MG TAB PO SCH (21:00)
[2018-04-27] MEDS: METOPROLOL TARTRATE 50 MG TAB PO SCH (21:00)
[2018-04-27] MEDS: AMIODARONE HCL 200 MG TABLET PO SCH (21:00)
[2018-04-27] MEDS: APIXABAN 5 MG TABLET PO SCH (22:32)
[2018-04-27] MEDS: MORPHINE SULFATE 2 MG/ML 1ML SYG IV PRN (22:44)
[2018-04-27] MEDS ORDERED: PNEUMOCOCCAL VACCINE POLYVALENT 0.5 ML/VIAL [PPV] IM ONE (23:45)
[2018-04-28] VITALS: BP 144/70
[2018-04-28 04:00] VITALS: BP 123/78
[2018-04-28 08:00] VITALS: BP 129/61
--- NOTE | 2018-04-28 08:14 | NUR ---
INTERVENTIONAL CARDIOLOGY Called Dr. Layton for consult for PVD/CAD.
[2018-04-28] MEDS ORDERED: ENOXAPARIN SODIUM 40 MG/0.4 ML SYRINGE SQ SCH (09:00)
[2018-04-28] MEDS ORDERED: NON-FORMULARY MEDICATION 1 EACH (Nicotine (Nicotine Patch) 1 EACH) TD SCH (09:00)
[2018-04-28] MEDS: METOPROLOL TARTRATE 50 MG TAB PO SCH ×3 (09:00→21:00)
[2018-04-28] MEDS: DILTIAZEM HCL 60 MG TABLET PO SCH ×3 (09:00→21:00)
[2018-04-28] MEDS ORDERED: FAMOTIDINE/PF 20 MG/2 ML VIAL IV SCH (09:00)
[2018-04-28] MEDS: FUROSEMIDE 40 MG TABLET PO SCH (09:00)
[2018-04-28] MEDS: AMIODARONE HCL 200 MG TABLET PO SCH ×2 (09:00→21:00)
[2018-04-28] MEDS: APIXABAN 5 MG TABLET PO SCH (09:00)
[2018-04-28] MEDS: POTASSIUM CHLORIDE 10 MEQ/TAB.SA PO SCH (09:00)
--- NOTE | 2018-04-28 09:51 | NUR ---
LUIS FERNANDO Held per Dr. Kamila minor.
[2018-04-28] MEDS: GABAPENTIN 100 MG CAPSULE PO SCH ×3 (09:55→21:00)
[2018-04-28] MEDS: FAMOTIDINE 20MG TAB 20 MG TAB PO SCH ×2 (09:55→21:00)
--- NOTE | 2018-04-28 09:56 | NUR ---
WOODY Held S/T procedure being planned by outsole handler.
[2018-04-28] MEDS: SODIUM CHLORIDE 0.9% 1000ML 1,000 ML IV SCH ×3 (10:00→23:20)
[2018-04-28] MEDS ORDERED: IODIXANOL 320 MG/ML 100 ML VIAL ONE (11:04)
[2018-04-28] MEDS ORDERED: HEPARIN SODIUM 1000UNIT/ML 10ML VIAL ONE (11:04)
[2018-04-28] MEDS ORDERED: LIDOCAINE HCL 2% 20ML ONE (11:04)
[2018-04-28] MEDS ORDERED: NITROGLYCERIN 5 MG/ML 10 ML VIAL IV ONE (11:04)
[2018-04-28 11:38] VITALS: BP 138/68
[2018-04-28] MEDS ORDERED: MORPHINE SULFATE 4 MG/1ML SYG IM PRN (13:15)
[2018-04-28] MEDS ORDERED: MORPHINE SULFATE 4 MG/1ML SYG IM ONE (14:20)
[2018-04-28] MEDS ORDERED: ENOXAPARIN SODIUM 40 MG/0.4 ML SYRINGE SQ ONE (14:32)
[2018-04-28] MEDS: CEFTRIAXONE SODIUM 1 GM IVP SCH (14:48)
[2018-04-28 16:00] VITALS: BP 129/60
--- NOTE | 2018-04-28 17:41 | NUR ---
cm note met with patient and states resides at home with spouse is a louie nelson. independent with adls and self care. drives self. states no dc needs. Addendum: 04/28/18 at 1743 by LATONYA RAMON CM Amended: Links added.
[2018-04-28 19:05] VITALS: BP 128/54
--- NOTE | 2018-04-28 20:40 | NUR ---
DR DE LEON INFORMED THAT PT TOOK ELIQUIS PT TOOK HOME ELIQUIS THAT WAS AT BEDSIDE DUE TO MISCOMMUNICATION. PT ASKED IF HE COULD TAKE HIS OWN HOME MEDS. I SAID YES BUT THAT I WAS TO BRING MY COMPUTER TO COMPARE ON WHAT MEDS TO TAKE. PT STATES HE DID NOT TAKE ELIQUIS. HOWEVER, PT'S STATED THAT HE DID TAKE ELIQUIS. INFORMED DR DE LEON ABOUT THE SITUATION.
[2018-04-28] MEDS: MORPHINE SULFATE 2 MG/ML 1ML SYG IV PRN (20:44)
[2018-04-28] MEDS: ENOXAPARIN SODIUM 80 MG/0.8 ML SQ SCH (21:00)
[2018-04-29] VITALS (9 sets, daily range): BP systolic 127–172; BP diastolic 59–79
[2018-04-29] MEDS ORDERED: MORPHINE SULFATE 4 MG/1ML SYG IV PRN (01:15)
[2018-04-29] MEDS: NITROGLYCERIN 1GM/1 INCH PACKET TD SCH ×3 (01:27→11:15)
[2018-04-29 05:22] LABS: BASOPHILS % (AUTO) 0.7 % (0.0-5.0); HEMATOCRIT 39.4 % (42-54); LYMPHOCYTES % (AUTO) 11.9 % (21.0-51.0); MEAN CORPUSCULAR HEMOGLOBIN 31.2 pg (27.0-33.0); MEAN CORPUSCULAR HGB CONC 33.9 g/dL (32.0-36.0); MEAN CORPUSCULAR VOLUME 92.3 fL (79-99); NEUTROPHILS % (AUTO) 73.4 % (40.0-77.0); PLATELET COUNT (AUTO) 173 K/uL (130-400); RED BLOOD CELL COUNT(AUTO) 4.27 MIL/uL (4.50-6.20); RED CELL DISTRIBUTION WIDTH 14.9 % (11.0-15.5); WHITE BLOOD COUNT (AUTO) 9.6 K/uL (4.8-10.8)
[2018-04-29 05:52] LABS: ALBUMIN 2.5 g/dL (3.5-5.0); BILIRUBIN,TOTAL 0.4 mg/dL (0.2-1.0); CREATININE 1.2 mg/dL (0.5-1.5); POTASSIUM 4.3 mmol/L (3.5-5.1); TOTAL PROTEIN, SERUM 6.5 g/dL (6.0-8.3)
[2018-04-29] MEDS: SODIUM CHLORIDE 0.9% 1000ML 1,000 ML IV SCH (06:00)
--- NOTE | 2018-04-29 07:20 | NUR ---
INTERVENTION MANAGER CALLED ABOUT PROCEDURE INTERVENTION MANAGER CALLED STATED THAT DR DE LEON INFORMED THEM OF THE PT TAKING ELIQUIS. MEI STATED THAT THEY WOULD WAIT TO SEE IF DR PAREKH WOULD PERFORM IT THIS AFTERNOON IF NOT TOMORROW.
[2018-04-29] MEDS: LEVOFLOXACIN 750 MG/D5W 150 ML 150 ML IV SCH (08:37)
[2018-04-29] MEDS: MORPHINE SULFATE 2 MG/ML 1ML SYG IV PRN (08:38)
[2018-04-29] MEDS ORDERED: ENOXAPARIN SODIUM 100 MG/1 ML SQ SCH (09:00)
[2018-04-29] MEDS: FAMOTIDINE 20MG TAB 20 MG TAB PO SCH ×2 (11:08→20:58)
[2018-04-29] MEDS: FUROSEMIDE 40 MG TABLET PO SCH (11:08)
[2018-04-29] MEDS: METOPROLOL TARTRATE 50 MG TAB PO SCH ×3 (11:08→22:52)
[2018-04-29] MEDS: GABAPENTIN 100 MG CAPSULE PO SCH ×3 (11:08→20:58)
[2018-04-29] MEDS: DILTIAZEM HCL 60 MG TABLET PO SCH ×2 (11:09→14:00)
[2018-04-29] MEDS: AMIODARONE HCL 200 MG TABLET PO SCH ×2 (11:09→20:57)
[2018-04-29] MEDS: ENOXAPARIN SODIUM 80 MG/0.8 ML SQ SCH (11:11)
[2018-04-29] MEDS: POTASSIUM CHLORIDE 10 MEQ/TAB.SA PO SCH (11:14)
[2018-04-29] MEDS ORDERED: PHARMACY COMMUNICATION MISC SCH (12:30)
--- NOTE | 2018-04-29 13:30 | NUR ---
CALL FROM METER READER INSPECTOR T/C FROM METER READER INSPECTOR AND SPOKE WITH MICHELLE HENSON STATES DR. Jose Antonio DE LEON IS WILLING TO DO PROCEDURE BETWEEN 3-4PM, INFORMED PT HAS EATEN.
--- NOTE | 2018-04-29 14:00 | NUR ---
CALL TO INDUSTRIAL ECONOMIST LEFT MESSAGE AND INFORMED THAT PT HAS BEEN GIVEN LOVENOX THIS MORNING. PENDING CALL BACK FOR FURTHER INSTRUCTIONS, PT IS CURRENTLY NPO FOR POSSIBLE PROCEDURE.
--- NOTE | 2018-04-29 14:42 | NUR ---
CALL TO BOOM WORKER T/C PLACED TO BOOM WORKER AND SPOKE WITH MICHELLE, [facility] PHYSICIAN INFORMED ABOUT LOVENOX AND THAT PT HAD LUNCH, [facility] PHYSICIAN WILL PROCEED WITH PROCEDURE, INFORMED NURSE ERNESTINE AND FAMILY.
[2018-04-29] MEDS ORDERED: IODIXANOL 320 MG/ML 100 ML VIAL ONE (15:37)
[2018-04-29] MEDS ORDERED: NITROGLYCERIN 5 MG/ML 10 ML VIAL IV ONE (15:37)
[2018-04-29] MEDS ORDERED: LIDOCAINE HCL 2% 20ML ONE (15:37)
[2018-04-29] MEDS ORDERED: HEPARIN SODIUM 1000UNIT/ML 10ML VIAL ONE (15:37)
--- NOTE | 2018-04-29 15:55 | NUR ---
SUPPLY CRIB ATTENDANT PROCEDURE Patient taken to lab animal technician at this time. he had lovenox and breakfast and lunch becuase he was supposed to not have procedure until tomorrow as initially mentioned by Recovery Analyst in AM. However, physicians determined it is OK to have procedure and are aware patient got lovenox and ate lunch. He was restarted on his NS at 150mL/hr at 1520, once primary nurse was informed patient would go today for procedure. NS had been stopped in AM as discussed with Dano Foster. Patient stable and in no distress on his way to Recovery Analyst.
[2018-04-29] MEDS ORDERED: CLOPIDOGREL BISULFATE 300 MG TAB ONE (17:06)
[2018-04-29] MEDS ORDERED: SODIUM CHLORIDE 0.9% 1000ML 1,000 ML IV SCH (17:38)
--- NOTE | 2018-04-29 18:07 | NUR ---
REPORT TO JESSICA Called report to Jessica Valdivia as patient is going to CVR room in 2nd Floor. aware.
[2018-04-29] MEDS: CEFTRIAXONE SODIUM 1 GM IVP SCH (19:22)
--- NOTE | 2018-04-29 19:40 | NUR ---
REPORT FROM ELVA KAPADIA RN.
--- NOTE | 2018-04-29 20:30 | NUR ---
ASSESSMENT PATIENT IS AAOX3. S/P PERIPHERAL ANGIOGRAM. FEMORAL SHEATH TO RT GROIN IN PLACE. NO HEMATOMA NOTED. RT PEDAL PULSE PALPABLE. PER M.D. ORDER, SHEATH TO BE REMOVED IN A.M. SEE ORDERS. REMINDED PATIENT TO CONTINUE BEDREST. LAY FLAT. NOT TO BEND OR LIFT RT LEG. PATIENT VERBALIZED UNDERSTANDING. SEE DOCUMENTATION FOR FULL ASSESSMENT. CALL LIGHT WITHIN REACH. INSTRUCTED PATIENT TO CALL IF ASSISTANCE IS NEEDED.
[2018-04-30] MEDS: DILTIAZEM HCL 60 MG TABLET PO SCH (00:24)
[2018-04-30] MEDS: NITROGLYCERIN 1GM/1 INCH PACKET TD SCH ×4 (00:25→20:40)
--- NOTE | 2018-04-30 02:15 | NUR ---
RT. GROIN CHECKED FREQUENTLY. SHEATH IN PLACE. NO HEMATOMA NOTED.
[2018-04-30 03:54] VITALS: BP 141/61
[2018-04-30 07:15] LABS: BASOPHILS % (AUTO) 0.7 % (0.0-5.0); EOSINOPHILS % (AUTO) 0.7 % (0.0-8.0); HEMATOCRIT 41.2 % (42-54); LYMPHOCYTES % (AUTO) 8.2 % (21.0-51.0); MEAN CORPUSCULAR HGB CONC 33.7 g/dL (32.0-36.0); MEAN CORPUSCULAR VOLUME 92.1 fL (79-99); MONOCYTES % (AUTO) 12.5 % (3.0-13.0); NEUTROPHILS % (AUTO) 77.9 % (40.0-77.0); PLATELET COUNT (AUTO) 160 K/uL (130-400); RED BLOOD CELL COUNT(AUTO) 4.47 MIL/uL (4.50-6.20); RED CELL DISTRIBUTION WIDTH 14.8 % (11.0-15.5); WHITE BLOOD COUNT (AUTO) 8.8 K/uL (4.8-10.8)
[2018-04-30 07:18] VITALS: BP 144/71
[2018-04-30 07:42] LABS: INR 1.08 (0.85-1.15); PARTIAL THROMBOPLASTIN TIME 32.9 SEC (26.3-35.5); PROTHROMBIN TIME 11.3 SEC (9.6-11.6)
[2018-04-30] MEDS: ACETAMINOPHEN-CODEINE 300/30MG TAB PO PRN ×2 (07:50→20:38)
--- NOTE | 2018-04-30 08:00 | NUR ---
PT RECEIVED IN BED, AAOX4, NO ACUTE DISTRESS NOTED. PT SEEN BY DR. DE LEON EARLIER TODAY. MD INSTRUCTED TO HAVE SHEATH REMOVED SOON POSSIBLE. SHEATH TO RIGHT GROIN REMOVED BY CHARGE NURSE KG HENSON AT 0747. RIGHT GROIN IS SOFT, NO BLEEDING OR HEMATOMA NOTED. OT TO CONT WITH BEDREST UNTIL 1100. PT VOICED AGREEMENT. WILL CONT TO MONITOR. CALL GUTIERREZ IS WITHIN REACH. INSTRUCTED TO CALL FOR ASSISTANCE IF NEEDED.
[2018-04-30] MEDS: FUROSEMIDE 40 MG TABLET PO SCH (09:26)
[2018-04-30] MEDS: CLOPIDOGREL BISULFATE 75 MG TAB PO SCH (09:26)
[2018-04-30] MEDS: DILTIAZEM HCL 180 MG CAP.SR.24H PO SCH (09:26)
[2018-04-30] MEDS: AMIODARONE HCL 200 MG TABLET PO SCH (09:26)
[2018-04-30] MEDS: FAMOTIDINE 20MG TAB 20 MG TAB PO SCH ×2 (09:26→20:33)
[2018-04-30] MEDS: GABAPENTIN 100 MG CAPSULE PO SCH ×3 (09:26→20:33)
[2018-04-30] MEDS: POTASSIUM CHLORIDE 10 MEQ/TAB.SA PO SCH (10:55)
[2018-04-30] MEDS: METOPROLOL TARTRATE 50 MG TAB PO SCH ×3 (10:55→20:34)
[2018-04-30 11:14] VITALS: BP 129/72
[2018-04-30] MEDS: NICOTINE 14 MG/ 24 HR PATCH TD SCH (11:30)
--- NOTE | 2018-04-30 11:40 | NUR ---
MD ROUNDS DR. BEST MERCADO IN TO SEE PATIENT. MD SPOKE WITH PT AND SPOUSE. CT OF CHEST CANCELED. CT OF CHEST TO BE ARRANGED BY MD OFFICE AND BX TO BE DONE IN ABOUT 2 WEEKS.
[2018-04-30] MEDS: SODIUM CHLORIDE 0.9% 1000ML 1,000 ML IV SCH ×2 (13:20)
[2018-04-30] MEDS: LEVOFLOXACIN 750 MG/D5W 150 ML 150 ML IV SCH (15:36)
--- NOTE | 2018-04-30 16:00 | NUR ---
ROUNDS DR. OGLESBY IN TO SEE PATIENT.
[2018-04-30 16:08] VITALS: BP 151/52
[2018-04-30] MEDS: CEFTRIAXONE SODIUM 1 GM IVP SCH (17:39)
[2018-04-30 18:58] VITALS: BP 143/66
--- NOTE | 2018-04-30 19:20 | NUR ---
DRESSING TO R TOES CHANGED BY DR BHAKTA AT BEDSIDE.
[2018-04-30] MEDS: MORPHINE SULFATE 4 MG/1ML SYG IV PRN (22:05)
[2018-04-30 23:21] VITALS: BP 132/55
[2018-05-01] MEDS: SODIUM CHLORIDE 0.9% 1000ML 1,000 ML IV SCH ×2 (02:40→16:22)
[2018-05-01] MEDS: NITROGLYCERIN 1GM/1 INCH PACKET TD SCH ×4 (02:51→20:13)
[2018-05-01 03:33] VITALS: BP 143/67
[2018-05-01] MEDS: ACETAMINOPHEN-CODEINE 300/30MG TAB PO PRN ×3 (03:36→18:13)
[2018-05-01 03:40] LABS: HEMATOCRIT 39.3 % (42-54); MEAN CORPUSCULAR HEMOGLOBIN 31.2 pg (27.0-33.0); MEAN CORPUSCULAR HGB CONC 33.7 g/dL (32.0-36.0); MEAN CORPUSCULAR VOLUME 92.6 fL (79-99); PLATELET COUNT (AUTO) 184 K/uL (130-400); RED BLOOD CELL COUNT(AUTO) 4.24 MIL/uL (4.50-6.20); RED CELL DISTRIBUTION WIDTH 14.8 % (11.0-15.5); WHITE BLOOD COUNT (AUTO) 10.6 K/uL (4.8-10.8)
[2018-05-01 03:51] LABS: CREATININE 1.1 mg/dL (0.5-1.5); POTASSIUM 3.8 mmol/L (3.5-5.1)
[2018-05-01 04:21] LABS: CRP QUANTITATIVE 182.6 mg/L (0.00-9.0)
[2018-05-01 04:34] LABS: ERYTHROCYTE SEDIMENTATION RATE 25 MM/HR (0-20)
[2018-05-01] MEDS: IPRATROPIUM/ALBUTEROL SULFATE 3 ML SOLUTION IH PRN (07:21)
[2018-05-01 07:35] VITALS: BP 121/79
[2018-05-01] MEDS: FAMOTIDINE 20MG TAB 20 MG TAB PO SCH ×2 (09:19→20:38)
[2018-05-01] MEDS: GABAPENTIN 100 MG CAPSULE PO SCH ×3 (09:19→20:42)
[2018-05-01] MEDS: CLOPIDOGREL BISULFATE 75 MG TAB PO SCH (09:19)
[2018-05-01] MEDS: AMIODARONE HCL 200 MG TABLET PO SCH (09:20)
[2018-05-01] MEDS: METOPROLOL TARTRATE 50 MG TAB PO SCH ×3 (09:20→20:38)
[2018-05-01] MEDS: FUROSEMIDE 40 MG TABLET PO SCH (09:20)
[2018-05-01] MEDS: DILTIAZEM HCL 180 MG CAP.SR.24H PO SCH (09:20)
[2018-05-01] MEDS: NICOTINE 14 MG/ 24 HR PATCH TD SCH (09:21)
[2018-05-01] MEDS: POTASSIUM CHLORIDE 10 MEQ/TAB.SA PO SCH (09:21)
[2018-05-01] MEDS: LEVOFLOXACIN 750 MG/D5W 150 ML 150 ML IV SCH (10:38)
[2018-05-01 11:28] VITALS: BP 115/61
[2018-05-01 16:15] VITALS: BP 131/58
[2018-05-01] MEDS: CEFTRIAXONE SODIUM 1 GM IVP SCH (16:24)
[2018-05-01 18:58] VITALS: BP 127/44
--- NOTE | 2018-05-01 19:30 | NUR ---
ASSESSMENT: REPORT RECEIVED FROM NATIVIDAD LOPEZ. PATIENT AA0X3, CHIOMA 3MM, FOLLOWS COMMANDS , STRONG X 3 WEAKNESS TO LLE WITH BULKY DRSG DRY AND INTACT, PEDAL PULSES WEAK, PALPABLE, O2 2.5 L NC, LUNGS CLEAR, ABDOMEN SOFT, R FEMORAL AREA SOFT. PATIENT PLEASANT JOKING, AT BEDSIDE. CALL GUTIERREZ IN REACH.
--- NOTE | 2018-05-01 19:50 | NUR ---
DR BHAKTA AT BEDSIDE, DRESSING CHANGE DONE BY MD AT BEDSIDE. NEW ORDER FOR AMPUTATION OF LEFT 5 TH TOE IN AM , PROCEDURE AND RISKS EXPLAINED TO PATIENT, LEFT PEDAL PULSE PALPABLE,
[2018-05-01] MEDS: MORPHINE SULFATE 4 MG/1ML SYG IV PRN (21:52)
--- NOTE | 2018-05-01 21:52 | NUR ---
PAIN TO LEFT FOOT "7" MORPHINE 2MG IV GIVEN. - SEE EMAR
--- NOTE | 2018-05-01 22:00 | NUR ---
PATIENT NPO FOR AM PROCEDURE.
--- NOTE | 2018-05-01 22:58 | NUR ---
PAIN CONTROLLED TO LLE
[2018-05-01 23:26] VITALS: BP 103/44
[2018-05-02] VITALS (20 sets, daily range): BP systolic 108–155; BP diastolic 40–84
--- NOTE | 2018-05-02 01:00 | NUR ---
A FIB HR 90.
[2018-05-02] MEDS: NITROGLYCERIN 1GM/1 INCH PACKET TD SCH ×4 (01:37→19:59)
[2018-05-02] MEDS: MORPHINE SULFATE 4 MG/1ML SYG IV PRN (01:58)
--- NOTE | 2018-05-02 01:58 | NUR ---
PAIN TO LEFT FOOT, MORPHINE 2MG IV GIVEN. - SEE EMAR
--- NOTE | 2018-05-02 02:58 | NUR ---
PATIENT REPORTS PAIN CONTROLLED .
[2018-05-02 03:32] LABS: HEMATOCRIT 39.7 % (42-54); MEAN CORPUSCULAR HEMOGLOBIN 31.4 pg (27.0-33.0); MEAN CORPUSCULAR HGB CONC 33.9 g/dL (32.0-36.0); MEAN CORPUSCULAR VOLUME 92.5 fL (79-99); PLATELET COUNT (AUTO) 157 K/uL (130-400); RED BLOOD CELL COUNT(AUTO) 4.29 MIL/uL (4.50-6.20); RED CELL DISTRIBUTION WIDTH 14.8 % (11.0-15.5); WHITE BLOOD COUNT (AUTO) 8.9 K/uL (4.8-10.8)
[2018-05-02 03:35] LABS: CREATININE 1.1 mg/dL (0.5-1.5); POTASSIUM 3.8 mmol/L (3.5-5.1)
--- NOTE | 2018-05-02 04:28 | NUR ---
CONVERTED BACK TO SR HR 60.
[2018-05-02] MEDS ORDERED: BUPIVACAINE/PF 0.5% 30ML VIAL ONE (05:44)
[2018-05-02] MEDS ORDERED: LIDOCAINE HCL 1% 20 ML VIAL ONE (05:45)
--- NOTE | 2018-05-02 06:16 | NUR ---
PT TRANSPORTED TO OR VIA BED, REFUSING TO PLACE ANY BELONGINGS WITH SECURITY.
[2018-05-02] MEDS: SODIUM CHLORIDE 0.9% 1000ML 1,000 ML IV SCH ×2 (06:30→18:40)
[2018-05-02] MEDS ORDERED: MIDAZOLAM HCL 1 MG/ML 2ML VIAL ONE (06:32)
[2018-05-02] MEDS ORDERED: PROPOFOL 10 MG/ML 20ML VIAL IV ONE (06:33)
[2018-05-02] MEDS ORDERED: FENTANYL CITRATE PF 50 MCG/1 ML 2ML VIAL ONE (06:33)
[2018-05-02] MEDS ORDERED: LIDOCAINE PF 2% 5ML ABBOJECT ONE (06:57)
--- NOTE | 2018-05-02 08:00 | NUR ---
ASSESSMENT PT RETURNED FROM PROCEDURE, S/P LEFT 5 TOE AND METATARSAL AMPUTATION, DRESSING DRY AND INTACT, PT DOES C/O PAIN 07/02. PT IS A&OX3, CALM COOPERATIVE AND DOES NOT APPEAR TO BE IN ANY DISTRESS NOR ANY NEURO DEFICITS PRESENT. PT DENIES NAUSEA, DIZZINESS OR LIGHTHEADEDNESS. PT TO REMAIN IN BEDREST. CALL LIGHT WITHIN REACH, FAMILY AT BEDSIDE.
[2018-05-02] MEDS: GABAPENTIN 100 MG CAPSULE PO SCH ×3 (09:40→22:27)
[2018-05-02] MEDS: DILTIAZEM HCL 180 MG CAP.SR.24H PO SCH (09:41)
[2018-05-02] MEDS: METOPROLOL TARTRATE 50 MG TAB PO SCH ×3 (09:41→22:29)
[2018-05-02] MEDS: AMIODARONE HCL 200 MG TABLET PO SCH (09:42)
[2018-05-02] MEDS: CLOPIDOGREL BISULFATE 75 MG TAB PO SCH (09:42)
[2018-05-02] MEDS: FUROSEMIDE 40 MG TABLET PO SCH (09:42)
[2018-05-02] MEDS: POTASSIUM CHLORIDE 10 MEQ/TAB.SA PO SCH (09:42)
[2018-05-02] MEDS: FAMOTIDINE 20MG TAB 20 MG TAB PO SCH ×2 (09:42→22:25)
[2018-05-02] MEDS: NICOTINE 14 MG/ 24 HR PATCH TD SCH (09:43)
[2018-05-02] MEDS: ACETAMINOPHEN-CODEINE 300/30MG TAB PO PRN ×2 (09:43→17:12)
[2018-05-02] MEDS: LEVOFLOXACIN 750 MG/D5W 150 ML 150 ML IV SCH (09:45)
[2018-05-02] MEDS ORDERED: HYDROMORPHONE 1 MG/1 ML AMP IVP SCH (11:00)
--- NOTE | 2018-05-02 13:59 | NUR ---
RDSCREEN - LOS X 5 Patient NPO for procedure at time of screen. Patient with good PO(100%) prior to procedure with no reported GI distress. Patient healthy BMI for age. Patient monitored labs: Na 134, Cl 97, Glu 116, Ca 8.2, Alb 2.5. Patient LBM 04/28/18. When medically feasible, rec to add stool softener or laxative secondary to constipation. RD to continue to monitor. Please notify RD as nutritional concerns arise. Thank you. Addendum: 05/02/18 at [address] Amended: Links added.
[2018-05-02] MEDS: CEFTRIAXONE SODIUM 1 GM IVP SCH (17:10)
--- NOTE | 2018-05-02 20:30 | NUR ---
ASSESSMENT PT RESTING COMFORTABLE IN BED. CURRENTLY DENIES ANY PAIN. CALLBELL REVIEWED AND WITHIN REACH. WHITE BOARD UP-DATED. QUESTIONS ASKED AND ANSWERED, SEE NURSING FLOW SHEET.
[2018-05-03] MEDS: NITROGLYCERIN 1GM/1 INCH PACKET TD SCH ×4 (02:07→17:00)
[2018-05-03] MEDS: MORPHINE SULFATE 4 MG/1ML SYG IV PRN ×3 (02:13→17:59)
[2018-05-03 03:35] LABS: BASOPHILS % (AUTO) 0.8 % (0.0-5.0); EOSINOPHILS % (AUTO) 2.1 % (0.0-8.0); HEMATOCRIT 38.1 % (42-54); LYMPHOCYTES % (AUTO) 11.7 % (21.0-51.0); MEAN CORPUSCULAR HEMOGLOBIN 31.1 pg (27.0-33.0); MEAN CORPUSCULAR HGB CONC 33.5 g/dL (32.0-36.0); MEAN CORPUSCULAR VOLUME 92.8 fL (79-99); MONOCYTES % (AUTO) 12.8 % (3.0-13.0); NEUTROPHILS % (AUTO) 72.6 % (40.0-77.0); PLATELET COUNT (AUTO) 163 K/uL (130-400); RED CELL DISTRIBUTION WIDTH 14.8 % (11.0-15.5); WHITE BLOOD COUNT (AUTO) 9.8 K/uL (4.8-10.8)
[2018-05-03 03:46] VITALS: BP 116/48
[2018-05-03 03:48] LABS: POTASSIUM 3.8 mmol/L (3.5-5.1)
[2018-05-03 08:00] VITALS: BP 142/71
[2018-05-03] MEDS: SODIUM CHLORIDE 0.9% 1000ML 1,000 ML IV SCH ×2 (08:00→21:20)
--- NOTE | 2018-05-03 08:06 | NUR ---
REPORT REPORT GIVEN TO DEMETRI HENSON
[2018-05-03] MEDS: NICOTINE 14 MG/ 24 HR PATCH TD SCH (08:57)
[2018-05-03] MEDS: FAMOTIDINE 20MG TAB 20 MG TAB PO SCH ×2 (08:57→21:37)
[2018-05-03] MEDS: DILTIAZEM HCL 180 MG CAP.SR.24H PO SCH (08:58)
[2018-05-03] MEDS: AMIODARONE HCL 200 MG TABLET PO SCH (08:58)
[2018-05-03] MEDS: CLOPIDOGREL BISULFATE 75 MG TAB PO SCH (08:58)
[2018-05-03] MEDS: GABAPENTIN 100 MG CAPSULE PO SCH ×4 (08:58→21:38)
[2018-05-03] MEDS: FUROSEMIDE 40 MG TABLET PO SCH (08:58)
[2018-05-03] MEDS: LEVOFLOXACIN 750 MG/D5W 150 ML 150 ML IV SCH (08:59)
[2018-05-03] MEDS: POTASSIUM CHLORIDE 10 MEQ/TAB.SA PO SCH (08:59)
[2018-05-03] MEDS: METOPROLOL TARTRATE 50 MG TAB PO SCH ×3 (08:59→21:38)
--- NOTE | 2018-05-03 11:21 | NUR ---
Dr. Gorman is in to see patient. Dressing change to the left 5th toe incision done. Per MD, patient may be discharged home today. Patient told MD that his will be in charge of changing dressing at home. MD orders a daily betadine dressing change management specialist incision site. Patient verbalized understanding.
[2018-05-03 12:00] VITALS: BP 137/58
[2018-05-03 16:00] VITALS: BP 138/52
[2018-05-03] MEDS: CEFTRIAXONE SODIUM 1 GM IVP SCH ×2 (16:00→16:59)
[2018-05-03 19:39] VITALS: BP 138/61
--- NOTE | 2018-05-03 20:00 | NUR ---
ASSESSMENT PT RESTING COMFORTABLE IN BED. CURRENTLY DENIES ANY PAIN. CALLBELL REVIEWED AND WITHIN REACH. WHITE BOARD UP-DATED. QUESTIONS ASKED AND ANSWERED. NURSING ASSESSMENT COMPLETED, SEE NURSING FLOW SHEET.
[2018-05-03] MEDS ORDERED: MORPHINE SULFATE 4 MG/1ML SYG IV PRN (21:15)
[2018-05-03 23:52] VITALS: BP 151/78
[2018-05-04] VITALS (7 sets, daily range): BP systolic 105–156; BP diastolic 49–80
[2018-05-04] MEDS: NITROGLYCERIN 1GM/1 INCH PACKET TD SCH ×3 (02:26→22:13)
--- NOTE | 2018-05-04 07:50 | NUR ---
ASSESSMENT ENCOUNTERED PT IN SEMI CHARLES'S POSITION, A&OX3, CALM COOPERATIVE AND DOES NOT APPEAR TO BE IN ANY DISTRESS NOR ANY NEURO DEFICITS PRESENT. PT C/O PAIN TO LEFT GREAT TOE 4/10, BUT DENIES DIZZINESS OR LIGHTHEADEDNESS. DRESSING TO LEFT FOOT DRY AND INTACT. CALL LIGHT WITHIN REACH.
[2018-05-04] MEDS: DILTIAZEM HCL 180 MG CAP.SR.24H PO SCH (07:53)
[2018-05-04] MEDS: CLOPIDOGREL BISULFATE 75 MG TAB PO SCH (07:53)
[2018-05-04] MEDS: FAMOTIDINE 20MG TAB 20 MG TAB PO SCH ×2 (07:54→22:16)
[2018-05-04] MEDS: FUROSEMIDE 40 MG TABLET PO SCH (07:54)
[2018-05-04] MEDS: AMIODARONE HCL 200 MG TABLET PO SCH (07:54)
[2018-05-04] MEDS: GABAPENTIN 100 MG CAPSULE PO SCH ×2 (07:55→22:16)
[2018-05-04] MEDS: POTASSIUM CHLORIDE 10 MEQ/TAB.SA PO SCH (07:55)
[2018-05-04] MEDS: METOPROLOL TARTRATE 50 MG TAB PO SCH ×2 (07:55→22:17)
[2018-05-04] MEDS: ACETAMINOPHEN-CODEINE 300/30MG TAB PO PRN (08:29)
[2018-05-04] MEDS ORDERED: LEVOFLOXACIN 500 MG TABLET PO SCH (09:00)
[2018-05-04] MEDS: IPRATROPIUM/ALBUTEROL SULFATE 3 ML SOLUTION IH PRN (10:27)
--- NOTE | 2018-05-04 10:28 | NUR ---
BRADYCARDIA AND HYPOTENSION, TELE MONITOR DISPLAYS SINUS BRADYCARDIA WITH EPISODES OF NON CONDUCTED PACS WITH MOBITZ TYPE II. PT IS COLD CLAMMY AND DROWSY. PT REPOSITIONED, INFORMED TO STAY AWAKE. DR NICOLAS AT BEDSIDE.
--- NOTE | 2018-05-04 10:36 | NUR ---
AFIB 90S BP IMPROVED, PT WARM TO TOUCH, PT STATED HE TOOK 3 TABLETS OF SPOUSE'S OXYCODONE OF UNKNOWN STRENGTH FROM PERSONAL BAG AT [address] NICOLAS AT BEDSIDE AND AWARE. PT INFORMED NOT TO TAKE ANY HOME MEDS. WILL CONTINUE TO MONITOR.
--- NOTE | 2018-05-04 16:00 | NUR ---
STATUS PT MAINTAINING NSR WITH NO C/O DIZZINESS OR LIGHTHEADEDNESS. PT RESTING COMFORTABLY, CALL LIGHT WITHIN REACH.
--- NOTE | 2018-05-04 20:00 | NUR ---
PERSONAL ITEMS PT RESTING QUIETLY IN BED, EYES CLOSED. NO PERSONAL ITEMS AT BEDSIDE. HR ALTERNATING BETWEEN NSR/AFIB.
[2018-05-04] MEDS: NICOTINE 14 MG/ 24 HR PATCH TD SCH (22:09)
--- NOTE | 2018-05-05 | NUR ---
ASSESSMENT PT RESTING COMFORTABLE IN BED. CURRENTLY DENIES ANY PAIN. CALLBELL WITHIN REACH. WHITE BOARD UP-DATED. QUESTIONS ASKED AND ANSWERED.
[2018-05-05] MEDS: NITROGLYCERIN 1GM/1 INCH PACKET TD SCH (02:39)
[2018-05-05 03:00] VITALS: BP 141/83
--- NOTE | 2018-05-05 03:00 | NUR ---
ASSESSMENT PT RESTING COMFORTABLE IN BED. CURRENTLY DENIES ANY PAIN. CALLBELL WITHIN REACH. WHITE BOARD UP-DATED. QUESTIONS ASKED AND ANSWERED.
[2018-05-05 03:19] LABS: HEMATOCRIT 40.5 % (42-54); MEAN CORPUSCULAR HEMOGLOBIN 30.7 pg (27.0-33.0); MEAN CORPUSCULAR HGB CONC 33.4 g/dL (32.0-36.0); MEAN CORPUSCULAR VOLUME 92.1 fL (79-99); PLATELET COUNT (AUTO) 179 K/uL (130-400); RED CELL DISTRIBUTION WIDTH 14.7 % (11.0-15.5); WHITE BLOOD COUNT (AUTO) 11.3 K/uL (4.8-10.8)
[2018-05-05 03:36] LABS: BAND NEUTROPHILS % (MANUAL) 2 % (0-2); EOSINOPHILS % (MANUAL) 1 % (1-6); LYMPHOCYTES % (MANUAL) 13 % (22-44); MONOCYTES % (MANUAL) 14 % (2-9); SEGMENTED NEUTROPHILS % 70 % (40-70)
[2018-05-05 03:37] LABS: MAN.DIFF COMMENT-IMPRESSION MANUAL DIFFERENTIAL; PLATELET MORPHOLOGY COMMENT ADEQUATE
[2018-05-05 07:53] VITALS: BP 160/53
--- NOTE | 2018-05-05 08:00 | NUR ---
ASSESSMENT PT IS AAOX3 DENIES CP DENIES SOB DENIES NV RESTING SITTING UPRIGHT IN RECLINER, NO COMPLAINTS. AM MEDS TAKEN, NO CHOKING NO GAGGING NOTED. SITTING UPRIGHT WATCHING TV. CALL LIGHT WITHIN REACH.
[2018-05-05] MEDS: CLOPIDOGREL BISULFATE 75 MG TAB PO SCH (08:01)
[2018-05-05] MEDS: AMIODARONE HCL 200 MG TABLET PO SCH (08:01)
[2018-05-05] MEDS: GABAPENTIN 100 MG CAPSULE PO SCH (08:01)
[2018-05-05] MEDS: FAMOTIDINE 20MG TAB 20 MG TAB PO SCH (08:01)
[2018-05-05] MEDS: FUROSEMIDE 40 MG TABLET PO SCH (08:02)
[2018-05-05] MEDS: DILTIAZEM HCL 180 MG CAP.SR.24H PO SCH (08:02)
[2018-05-05] MEDS: POTASSIUM CHLORIDE 10 MEQ/TAB.SA PO SCH (08:02)
[2018-05-05] MEDS: METOPROLOL TARTRATE 50 MG TAB PO SCH ×2 (08:02→12:42)
[2018-05-05] MEDS: NICOTINE 14 MG/ 24 HR PATCH TD SCH (08:04)
[2018-05-05 11:12] VITALS: BP 148/99
[2018-05-05] MEDS: ACETAMINOPHEN-CODEINE 300/30MG TAB PO PRN (12:42)
--- NOTE | 2018-05-05 12:48 | NUR ---
DC PLAN SPOKE TO PATIENT REGARDING WALKER. SAID DO NOT BOTHER WILL NOT USE. HE FEELS BETTER WHEN HE PUTS WEIGHT ON THE FOOT. PATIENT WANTS TO GO HOME DOES NOT WANT TO KEEP WAITING FOR MD. Addendum: 05/05/18 at 1249 by ZAKI PEREZ RN CM Amended: Links added.
--- NOTE | 2018-05-05 12:50 | NUR ---
STATUS NO COMPLAINTS, SITTING UPRIGHT IN CHAIR TOLERATED LUNCH. PENDING PRIMARY MD TO ROUND.
--- NOTE | 2018-05-05 14:43 | NUR ---
MD ROUNDS / DISCHARGE DR MENDEL CARTWRIGHT ROUNDED. OK TO DC HOME TODAY. ALL MEDS GONE OVER WITH PATIENT. DISCHARGE INSTRUCTIONS UNDERSTOOD BY PATIENT AND ALL FAMILY IN ROOM. AGREE TO TAKE MEDS ORDERED AND FOLLOW UP WITH MDS ORDERED. PIV REMOVED CATH TIP INTACT, TELE PACK REMOVED. DOWN VIA WC WITH FAMILY AND NURSE AIDE.
== END 2018-05-05 14:45 | disposition home or self-care (01) | DRG 240 ==
LOC: EDH 12:45 → EDHIP 17:55 → 3BH 20:42 → 2BH 04-29 19:02 → 2AH 05-05 06:40
PROVIDERS: ADMIT Family Medicine; ATTEND Family Medicine
PROC: 047D35Z Dilation of Left Common Iliac Artery with Two Drug-eluting Intraluminal Devices, Percutaneous Approach (ICD-10-PCS; principal; 2018-04-29)
PROC: 047J34Z Dilation of Left External Iliac Artery with Drug-eluting Intraluminal Device, Percutaneous Approach (ICD-10-PCS; 2018-04-29)
PROC: B4101ZZ Fluoroscopy of Abdominal Aorta using Low Osmolar Contrast (ICD-10-PCS; 2018-04-29)
PROC: B41G1ZZ Fluoroscopy of Left Lower Extremity Arteries using Low Osmolar Contrast (ICD-10-PCS; 2018-04-29)
PROC: 0Y6N0ZF Detachment at Left Foot, Partial 5th Ray, Open Approach (ICD-10-PCS; 2018-05-02)
DX: I70.262 Atherosclerosis of native arteries of extremities with gangrene, left leg (principal); L03.116 Cellulitis of left lower limb; J44.1 Chronic obstructive pulmonary disease with (acute) exacerbation; I50.42 Chronic combined systolic (congestive) and diastolic (congestive) heart failure; E87.1 Hypo-osmolality and hyponatremia; S22.41XA Multiple fractures of ribs, right side, initial encounter for closed fracture; I48.0 Paroxysmal atrial fibrillation; I99.8 Other disorder of circulatory system; F17.200 Nicotine dependence, unspecified, uncomplicated; M19.90 Unspecified osteoarthritis, unspecified site; R91.8 Other nonspecific abnormal finding of lung field; B35.3 Tinea pedis; E66.9 Obesity, unspecified; F03.90 Unspecified dementia, unspecified severity, without behavioral disturbance, psychotic disturbance, mood disturbance, and anxiety; G62.9 Polyneuropathy, unspecified; I11.0 Hypertensive heart disease with heart failure; I28.9 Disease of pulmonary vessels, unspecified; L97.529 Non-pressure chronic ulcer of other part of left foot with unspecified severity; Z68.29 Body mass index [BMI] 29.0-29.9, adult; Z79.01 Long term (current) use of anticoagulants; Z89.429 Acquired absence of other toe(s), unspecified side; Z95.5 Presence of coronary angioplasty implant and graft; Z28.21 Immunization not carried out because of patient refusal; Z82.3 Family history of stroke; Z80.9 Family history of malignant neoplasm, unspecified
CPT/HCPCS: 36415; 37221; 71045; 73630; 73718; 75630; 80048; 80053; 82550; 82948; 83605; 84484; 85025; 85027; 85347; 85610; 85651; 85730; 86140; 87040; 87070; 87076; 87205; 88304; 88305; 88311; 93005; 93926; 93971; 94640; 94664; A4218; C1725; C1893; C1894; G0378; J0696; J1170; J1644; J1650; J1956; J2001; J2250; J2270; J2704; J3010; J3490; J7030; Q9967

== ENCOUNTER 2018-05-08 15:04 | Inpatient (IN) | payer MEDICARE | END 2018-05-23 15:10 | LOC: EDH 15:04 → 2AH 05-17 06:46 → 2DH 05-23 00:25 → EDHIP 19:59 → 2AH 05-09 19:00 | PROC: B4101ZZ Fluoroscopy of Abdominal Aorta using Low Osmolar Contrast (ICD-10-PCS; principal; 2018-05-13 12:45) | PROC: 03150J8 Bypass Right Axillary Artery to Bilateral Upper Leg Artery with Synthetic Substitute, Open Approach (ICD-10-PCS; 2018-05-13 12:45) | PROC: 041L09L Bypass Left Femoral Artery to Popliteal Artery with Autologous Venous Tissue, Open Approach (ICD-10-PCS; 2018-05-13 12:45) | PROC: 0Y6N0Z9 Detachment at Left Foot, Partial 1st Ray, Open Approach (ICD-10-PCS; 2018-05-13 12:45) | PROC: 0Y6N0ZB Detachment at Left Foot, Partial 2nd Ray, Open Approach (ICD-10-PCS; 2018-05-13 12:45) | PROC: 0Y6N0ZC Detachment at Left Foot, Partial 3rd Ray, Open Approach (ICD-10-PCS; 2018-05-13 12:45) | PROC: 0Y6N0ZD Detachment at Left Foot, Partial 4th Ray, Open Approach (ICD-10-PCS; 2018-05-13 12:45) | PROC: 0Y6N0ZF Detachment at Left Foot, Partial 5th Ray, Open Approach (ICD-10-PCS; 2018-05-13 12:45) | DX: T82.898A Other specified complication of vascular prosthetic devices, implants and grafts, initial encounter (principal); J96.01 Acute respiratory failure with hypoxia; L03.116 Cellulitis of left lower limb; E44.0 Moderate protein-calorie malnutrition; N17.9 Acute kidney failure, unspecified; I13.0 Hypertensive heart and chronic kidney disease with heart failure and stage 1 through stage 4 chronic kidney disease, or unspecified chronic kidney disease; E87.1 Hypo-osmolality and hyponatremia; D68.59 Other primary thrombophilia; J44.9 Chronic obstructive pulmonary disease, unspecified; R09.02 Hypoxemia; G57.92 Unspecified mononeuropathy of left lower limb; I73.9 Peripheral vascular disease, unspecified; I48.2 Chronic atrial fibrillation; Z89.422 Acquired absence of other left toe(s); L97.529 Non-pressure chronic ulcer of other part of left foot with unspecified severity; L60.0 Ingrowing nail; Y83.1 Surgical operation with implant of artificial internal device as the cause of abnormal reaction of the patient, or of later complication, without mention of misadventure at the time of the procedure; F17.200 Nicotine dependence, unspecified, uncomplicated; N18.3 Chronic kidney disease, stage 3 (moderate) ==